=== PATIENT | male | born 1975 ===

== ENCOUNTER 2018-11-17 21:32 | Inpatient (IN) | payer MEDICAID ==
[~2018-11-17] VITALS: Ht 182.9 cm; Wt 127.0 kg
[2018-11-17] MEDS ORDERED: diphenhydrAMINE 50 MG/1 ML VIAL ONE (21:55)
--- NOTE | 2018-11-17 21:55 | NUR ---
Pt. ambulated into ED w/ c/o N/V/pruritus since this morning, A/Ox4, RR even and unlabored, speaks in clear and complete sentences, abd. S/R/NT/distended and rounded, BS active x4 quads, bed put in low position, emesis bag given,
[2018-11-17] MEDS ORDERED: ONDANSETRON 4 MG/2 ML VIAL ONE (21:56)
[2018-11-17] MEDS ORDERED: ONDANSETRON 4 MG/2 ML VIAL IV ONE (22:00)
[2018-11-17] MEDS ORDERED: diphenhydrAMINE 50 MG/1 ML VIAL IV ONE (22:00)
[2018-11-17] MEDS ORDERED: IV NORMAL SALINE 1000 ML BAG IV ONE (22:00)
--- NOTE | 2018-11-17 22:00 | NUR ---
Blood collected and sent to lab by phleb. tech.
[2018-11-17 22:02] LABS: BASOPHILS # (AUTO) 0.1 K/uL (0.0-8.0); EOSINOPHILS # (AUTO) 0.4 K/uL (0.0-0.7); EOSINOPHILS % (AUTO) 3.7 % (0.0-7.0); HEMATOCRIT 41.5 % (36.7-47.1); HEMOGLOBIN 14.1 g/dL (12.5-16.3); LYMPHOCYTES # (AUTO) 1.9 K/uL (20.0-40.0); LYMPHOCYTES % (AUTO) 16.7 % (20.5-51.5); MEAN CORPUSCULAR HEMOGLOBIN 29.1 uug (23.8-33.4); MEAN CORPUSCULAR HGB CONC 34 g/dL (32.5-36.3); MEAN CORPUSCULAR VOLUME 85.5 fL (73.0-96.2); MONOCYTES % (AUTO) 8.3 % (0.0-11.0); NEUTROPHILS # (AUTO) 8.1 K/uL (1.8-8.9); NEUTROPHILS % (AUTO) 70.3 % (38.5-71.5); PLATELET COUNT (AUTO) 258 K/uL (152-348); RED BLOOD CELL COUNT(AUTO) 4.86 MIL/uL (4.06-5.63); WHITE BLOOD COUNT (AUTO) 11.6 K/uL (3.6-10.2)
[2018-11-17 22:11] LABS: CREATININE 0.9 mg/dL (0.6-1.3); POTASSIUM 3.4 mmol/L (3.5-5.1)
--- NOTE | 2018-11-17 22:15 | NUR ---
US tech. at bedside,
[2018-11-17 22:17] LABS: BILIRUBIN,DIRECT 0.9 mg/dL (0.0-0.2); BILIRUBIN,TOTAL 1.5 mg/dL (0.2-1.0); TOTAL PROTEIN, SERUM 8.1 g/dL (6.4-8.2)
[2018-11-17] MEDS ORDERED: CIPROFLOXACIN IV 400 MG in PREMIXED 1 EACH IV STA (22:33)
--- NOTE | 2018-11-17 22:33 | NUR ---
Dr. Hussein on phone w/ pts. PCP Martha, called for med/surg bed,
--- NOTE | 2018-11-17 22:36 | NUR ---
Called [facility] for panel call, awaiting call back from Dr. Moura,
--- NOTE | 2018-11-17 22:40 | NUR ---
Called [facility] for Cipro - not stocked in ER pyxis,
[2018-11-17] MEDS ORDERED: METRONIDAZOLE 500 MG/NS 100ML 100 ML IV ONE ×2 (22:44→22:45)
--- NOTE | 2018-11-17 23:00 | NUR ---
Pt. resting in bed w/ eyes closed, NAD, called to give report, awaiting call back from Elyse ESCALERA,
--- NOTE | 2018-11-17 23:00 | NUR ---
Dr. Hussein on phone w/ Dr. Moura,
[2018-11-17] MEDS ORDERED: HYDROCODONE/APAP 5-325MG TABLET PO PRN (23:15)
[2018-11-17] MEDS ORDERED: POTASSIUM CHLORIDE 20 MEQ TAB.PRT.SR PO ONE (23:15)
[2018-11-17] MEDS ORDERED: ONDANSETRON 4 MG/2 ML VIAL IV PRN (23:15)
[2018-11-17] MEDS ORDERED: MAGNESIUM HYDROXIDE 30 ML LIQUID UDC PO PRN (23:15)
[2018-11-17] MEDS ORDERED: ACETAMINOPHEN 325 MG TABLET PO PRN (23:15)
[2018-11-17] MEDS ORDERED: Z GUARD REMEDY PASTE 57 GM TUBE TOP PRN (23:15)
--- NOTE | 2018-11-17 23:21 | NUR ---
Gave report to Elyse ESCALERA,
--- NOTE | 2018-11-17 23:26 | NUR ---
Pt. taken off unit for unit via stretcher for admit to med/surg., Cipro abx endorsed to Elyse ESCALERA w/ written orders taken, IV patent and infusing flagkit, VSS, NAD
--- NOTE | 2018-11-17 23:30 | NUR ---
PATIENT RECEIVED IN STABLE CONDITION ON STRETCHER. NO SIGNS OF ACUTE DISTRESS. COMFORT MEASURES PROVIDED. BED IN LOWEST POSITION. SIDE RAILS UP X2.
--- NOTE | 2018-11-17 23:30 | NUR ---
RECEIVE PT FROM ER VIA [facility]. PT UNDER THE CARE OF DR. ROJAS DX: CHOLANGITIS. BELONGING LIST DONE. SHELTER ASSESSMENT DONE. ADMISSION PROCESS AND CARE PLAN INITIATED. SAFETY AND COMFORT PROVIDED. WILL CONTINUE TO MONITOR.
--- NOTE | 2018-11-17 23:31 | NUR ---
PT SKIN IS DRY AND ITCHY. PT REFUSED TO HAVE HIS GOWN OWN.
--- NOTE | 2018-11-17 23:31 | NUR ---
CIPRO ORDERED BY ER . NOT ADMINISTERED IN ER. PHARMACY AWARE. CHARGE NURSE AWARE. WILL GIVE IT IN MEDSURG FLOOR.
[2018-11-17 23:41] VITALS: BP 121/49
[2018-11-18] MEDS ORDERED: CIPROFLOXACIN IV 400 MG in PREMIXED 1 EACH IV ONE ×2 (01:30→12:00)
--- NOTE | 2018-11-18 02:00 | NUR ---
SPOKE TO DR. GONZALEZ FOR PATIENTS S/S OF ITCHING OF THE UPPER EXTREMITIES. ORDER GIVEN FOR BENADRYL AND ADMINISTERED.
[2018-11-18] MEDS ORDERED: diphenhydrAMINE 50 MG/1 ML VIAL IV PRN (02:15)
[2018-11-18] MEDS ORDERED: METRONIDAZOLE 500 MG/NS 100ML 100 ML IV ONE (04:39)
[2018-11-18 05:25] VITALS: BP 122/59
[2018-11-18] MEDS ORDERED: METRONIDAZOLE 500 MG/NS 100ML 500 MG in PREMIXED 1 EACH IV SCH (06:00)
--- NOTE | 2018-11-18 06:23 | NUR ---
PT SLEPT INTERMITTENTLY. PT GIVEN BENADRYL FOR ITCHINESS. PT STILL REFUSE TO PUT HIS GOWN ON. CALL LIGHT WITHIN REACH. SAFETY AND COMFORT PROVIDED. WILL ENDORSE ACCORDINGLY TO INCOMING NURSE FOR CONTINUITY OF CARE.
[2018-11-18 06:34] LABS: BASOPHILS # (AUTO) 0.1 K/uL (0.0-8.0); EOSINOPHILS # (AUTO) 0.4 K/uL (0.0-0.7); EOSINOPHILS % (AUTO) 3.6 % (0.0-7.0); HEMATOCRIT 42.1 % (36.7-47.1); HEMOGLOBIN 14.1 g/dL (12.5-16.3); LYMPHOCYTES # (AUTO) 1.8 K/uL (20.0-40.0); LYMPHOCYTES % (AUTO) 17.9 % (20.5-51.5); MEAN CORPUSCULAR HEMOGLOBIN 29.1 uug (23.8-33.4); MEAN CORPUSCULAR HGB CONC 34 g/dL (32.5-36.3); MEAN CORPUSCULAR VOLUME 86.7 fL (73.0-96.2); MONOCYTES # (AUTO) 0.8 K/uL (2.0-10.0); MONOCYTES % (AUTO) 8.4 % (0.0-11.0); NEUTROPHILS # (AUTO) 6.8 K/uL (1.8-8.9); NEUTROPHILS % (AUTO) 69.1 % (38.5-71.5); PLATELET COUNT (AUTO) 212 K/uL (152-348); RED BLOOD CELL COUNT(AUTO) 4.85 MIL/uL (4.06-5.63); WHITE BLOOD COUNT (AUTO) 9.8 K/uL (3.6-10.2)
[2018-11-18 06:48] LABS: CREATININE 0.9 mg/dL (0.6-1.3); PHOSPHOROUS 3.9 mg/dL (2.5-4.9); POTASSIUM 3.8 mmol/L (3.5-5.1)
--- NOTE | 2018-11-18 07:05 | NUR ---
Pt. resting in bed w/ eyes closed, seems free of distress, safety and comfort measures are implemented, will continue plan of care
--- NOTE | 2018-11-18 08:59 | NUR ---
around 8:30 patient left AMA,IV found in the room, ID band not found, called the security to make sure if he is in downstairs for smock, 8:55 am got call from security he is not downstairs,he left AMA
[2018-11-18] MEDS ORDERED: CIPROFLOXACIN IV 400 MG in PREMIXED 1 EACH IV SCH (21:00)
== END 2018-11-18 08:30 | disposition left against medical advice (07) ==
LOC: ER 21:32 → MEDSURG3 23:10
PROVIDERS: ADMIT Family Medicine; ATTEND Nurse Practitioner Acute Care
DX: K83.09 Other cholangitis (principal); E78.5 Hyperlipidemia, unspecified; K81.0 Acute cholecystitis; E87.6 Hypokalemia; Z88.0 Allergy status to penicillin; R74.0 Nonspecific elevation of levels of transaminase and lactic acid dehydrogenase [LDH]
CPT/HCPCS: 36415; 83690; 83735; 84100; 85025; 85730; 87040; A4663; G0378; J0744; J1200; J2405; J3490; J7030; J7040; J7050